=== PATIENT | female | born 1970 | race Caucasian/White ===

== ENCOUNTER 2017-02-05 18:34 | Inpatient (IN) | payer BC ==
[2017-02-05] MEDS ORDERED: Ondansetron HCl/PF 4 MG/2 ML Vial ONE (18:57)
[2017-02-05] MEDS ORDERED: Morphine Sulfate 2 MG/ML SYRINGE ONE (18:57)
[2017-02-05 19:00] LABS: #Basophils 0.1 thou/uL (0.0-0.2); #Eosinphils 0.1 thou/uL (0.0-0.7); #Lymphocytes 2.8 thou/uL (1.20-3.40); #Monocytes 0.4 thou/uL (0.11-0.59); #Neutrophils 3.5 thou/uL (1.40-6.50); %Basophils 1.8 % (0.0-1.0); %Eosinophils 1.3 % (0.0-10.0); %Lymphocytes 39.9 % (21.0-51.0); %Monocytes 6.3 % (0.0-10.0); Hematocrit 41.2 % (36.0-47.0); Mean Platelet Volume 6.7 fL (7.4-10.4); Red Blood Cell (RBC) Count 4.63 mill/uL (4.20-5.40); White Blood Cell (WBC) Count 6.9 thou/uL (4.8-10.8)
[2017-02-05 19:23] LABS: ALT (SGPT) 19 U/L (8-55); AST (SGOT) 24 U/L (5-34); Alkaline Phosphatase 72 U/L (40-150); Anion Gap 14 mmol/L (10-20); BUN (Urea Nitrogen) 23 mg/dL (7.0-18.7); Bilirubin, Total 0.2 mg/dL (0.2-1.2); Calc. Creatinine Clearance 0 mL/min (70-130); Calcium 9.4 mg/dL (7.8-10.44); Carbon Dioxide 27 mmol/L (22-29); Chloride 102 mmol/L (98-107); Estimated GFR-MDRD 72; Globulin 3.7 g/dL (2.4-3.5); Lipase 32 U/L (8-78); Protein, Total 7.8 g/dL (6.0-8.3)
--- NOTE | 2017-02-05 20:33 | ULT ---
RIGHT UPPER QUADRANT ULTRASOUND: Indication: Right upper quadrant abdominal pain for one week. Comparison: 10-13-07 FINDINGS: Overlying bowel gas limits visualization of the pancreas. Visualized aspects of the liver appear within normal limits. There have been interval development of a wall echo shadow sign within the gallbladder. Gallbladder wall thickness is slightly difficult to measure due to the prominent of stones within the gallbladde r but is estimated to measure approximately 6.7 mm, which is thickened. No pericholecystic fluid is evident. The patient was medicated with pain medication prior to the procedure limiting evaluation o f the Bright's sign. The common bile duct measured 4 mm, which is normal. The right kidney measures 9.4 x 4.9 x 5 cm. No focal renal lesion or hydronephrosis is evident. IMPRESSION: Cholelithiasis with mild gallbladder wall thickening. The patient was medicated prior to the examina tion limiting evaluation for sonographic Bright's sign. The examination is equivocal for acute calcu vel cholecystitis. HIDA exam may be helpful additional characterization. POS: MILLER
[2017-02-05] MEDS ORDERED: Meropenem 1 GM in Sodium Chloride 0.9% 100 ML IVPB SCH (21:00)
[2017-02-05] MEDS ORDERED: Ondansetron ODT 4 MG TAB SL PRN (22:47)
[2017-02-05] MEDS ORDERED: Sodium Chloride 0.9% 1,000 ML IV SCH (22:47)
[2017-02-05] MEDS ORDERED: Ondansetron HCl/PF 4 MG/2 ML Vial IVP PRN ×2 (22:47→23:08)
[2017-02-05] MEDS ORDERED: Ketorolac Tromethamine 30 MG/ML VIAL IVP PRN ×2 (22:52→23:08)
[2017-02-05] MEDS ORDERED: Mag-Al 1200 mg/1200 mg/30 ML UDCUP PO PRN (23:08)
[2017-02-05] MEDS ORDERED: Dextrose 5% in Water 1,000 ML IV PRN (23:08)
[2017-02-05] MEDS ORDERED: Promethazine HCl 25 MG/ML VIAL IM PRN (23:08)
[2017-02-05] MEDS ORDERED: Calcium Carbonate 500 MG ChewTAB PO PRN (23:08)
[2017-02-05] MEDS ORDERED: Dextrose 50% Abboject 50 ML SYRINGE SLOW IVP PRN (23:08)
[2017-02-05] MEDS ORDERED: HYDROcodone/Acetaminophen 10/325 mg Tablet PO PRN ×2 (23:08)
[2017-02-06] MEDS: Sodium Chloride 0.9% 1,000 ML IV SCH ×3 (00:04→16:41)
[2017-02-06] MEDS ORDERED: Zolpidem Tartrate 5 MG TAB PO SCH (00:15)
[2017-02-06 00:16] VITALS: BP 125/82; TEMP 98.1
[2017-02-06 04:44] VITALS: BMI 29.0
--- NOTE | 2017-02-06 07:45 | HP ---
CHIEF COMPLAINT: Right upper quadrant pain. HISTORY OF PRESENT ILLNESS: This is a 47-year-old female who presents with acute cholecystitis. He r symptoms started a week ago, got progressively worse over the weekend. Denies history of known ja undice, gallstones or pancreatitis. Ultrasound shows thickened gallbladder wall and gallstones asso ciated with nausea, but no vomiting. No chronic diarrhea. No history of inflammatory bowel disease . PAST MEDICAL HISTORY: Hypertension, chronic pain. PAST SURGICAL HISTORY: Includes back surgery x2. MEDICINES: At home; lisinopril, Ambien, Wellbutrin and hydrocodone. ALLERGIES: No known drug allergies. SOCIAL HISTORY: No smoking, alcohol or other drugs. REVIEW OF SYSTEMS: Ten system review of systems otherwise negative unless described above. PHYSICAL EXAMINATION: VITAL SIGNS: Blood pressure 125/82, pulse 71, respirations 16, temperature 98.1. HEENT: Sclerae are anicteric. Oropharynx clear. NECK: No lymphadenopathy. CHEST: Clear. HEART: Regular rate and rhythm. ABDOMEN: Soft, tender in the right upper quadrant, localized guarding, no rebound, no abdominal or inguinal hernias. EXTREMITIES: No ischemia or edema to extremities. LABORATORY AND X-RAY FINDINGS: White blood cell count 6.9, hemoglobin 13. Sodium 140, potassium 3. 4, creatinine 0.84. Normal liver function tests, normal lipase. Ultrasound shows cholelithiasis, thickened gallbladder wall, normal common bile duct. ASSESSMENT: 1. Acute cholecystitis 2. Hypertension. 3. Chronic back pain. PLAN: Laparoscopic cholecystectomy today. Risks, benefits, alternatives discussed.
[2017-02-06] MEDS ORDERED: Scopolamine 1.5 mg/72 hour Patch TD SCH (08:00)
[2017-02-06] MEDS ORDERED: Famotidine/PF 20 mg/2ml Vial SLOW IVP SCH (09:00)
[2017-02-06] MEDS ORDERED: Fentanyl 100 MCG/2 ML VIAL ONE ×4 (10:19→12:51)
[2017-02-06] MEDS ORDERED: Bupivacaine HCl 0.5%/Epinephrine 1:200,000/PF 30 ml Vial ONE (10:21)
[2017-02-06] MEDS ORDERED: Propofol 200 MG/20 ML VIAL ONE ×2 (10:49)
[2017-02-06] MEDS ORDERED: Dexamethasone 20 MG/5 ML VIAL ONE (10:49)
[2017-02-06] MEDS ORDERED: Ondansetron HCl/PF 4 MG/2 ML Vial ONE (10:49)
[2017-02-06] MEDS ORDERED: Glycopyrrolate 0.2 MG/ML 5 ML SYRINGE ONE (10:49)
[2017-02-06] MEDS ORDERED: Ketorolac Tromethamine 30 MG/ML VIAL ONE (10:49)
[2017-02-06] MEDS ORDERED: Lidocaine 1% PF 5 ML VIAL ONE (10:49)
[2017-02-06] MEDS ORDERED: Promethazine HCl 25 MG/ML VIAL IM PRN ×2 (11:36→12:33)
[2017-02-06] MEDS ORDERED: Ondansetron HCl/PF 4 MG/2 ML Vial IVP PRN ×2 (11:36→12:33)
[2017-02-06] MEDS ORDERED: Promethazine HCl 25 MG/ML VIAL SLOW IVP PRN ×2 (11:36→12:33)
[2017-02-06] MEDS ORDERED: Promethazine HCl 25 MG/ML VIAL ONE (12:23)
--- NOTE | 2017-02-07 12:14 | DIS ---
DATE OF ADMISSION: 02/05/2017 DATE OF DISCHARGE: 02/06/2017 ADMIT DIAGNOSIS: Acute cholecystitis. DISCHARGE DIAGNOSIS: Acute cholecystitis. PROCEDURE: Laparoscopic cholecystectomy by Dr. Guillen without complication. CONDITION AT DISCHARGE: Improved. STAFF: Ton Guillen M.D. HOSPITAL COURSE: See hospital chart for details of hospitalization.
--- NOTE | 2017-02-07 12:14 | OP ---
DATE OF PROCEDURE: 02/06/2017 PREOPERATIVE DIAGNOSIS: Acute cholecystitis. POSTOPERATIVE DIAGNOSIS: Acute cholecystitis. PROCEDURE PERFORMED: Laparoscopic cholecystectomy. SURGEON: Ton Guillen M.D. ANESTHESIA: General. ESTIMATED BLOOD LOSS: Minimal. COMPLICATIONS: None. SPECIMEN: Gallbladder. FINDINGS: Chronic cholecystitis. PROCEDURE IN DETAIL: The patient was taken to the Operating Room and laid supine on the Operating R oom table. After general anesthetic was obtained, the abdomen was prepped and draped in a sterile f ashion. A curved incision was made below the umbilicus. Cautery was used to dissect down to the umb ilical fascia. Umbilical fascia was incised and held up using a Alie. The abdominal cavity was e ntered using a Radha clamp. Holding stitch of Vicryl was placed on each side of the fascia. Moore trocar was placed. High-flow pneumoperitoneum was obtained. An upper midline 5-mm port and two ri t upper quadrant 5-mm ports were placed under direct camera visualization. The gallbladder was re tracted from the gallbladder fossa. The peritoneum of the gallbladder was opened anteriorly and pos teriorly. The critical view triangle was seen showing only the cystic duct and cystic artery branch ing from medial to lateral. There were no other branching structures. Two clips were placed proxim ally on the cystic duct and one laterally. It was cut using laparoscopic scissors. The cystic arter y was taken in the same way. Electrocautery was then used to dissect the gallbladder out of the gal lbladder fossa. The gallbladder was placed in an Endo catch bag and brought out through the Moore. There was no bleeding or bile in the liver bed. The cystic duct stump and cystic artery stump wer e intact without evidence of extravasation or bleeding. All port sites were infiltrated using local anesthesia. All ports were removed under camera visualization. Pneumoperitoneum was let down. Th e Vicryl was used to close the fascial defect below the umbilicus. All incisions were irrigated and closed using 4-0 Monocryl and Dermabond. The patient was en route to Recovery in stable condition. All instrument counts, needle counts and lap counts were correct.
== END 2017-02-06 19:28 | disposition home or self-care (01) | DRG 419 ==
LOC: ERS 18:34 → SURG A 22:28
PROVIDERS: ADMIT Surgery; ATTEND Surgery
PROC: 0FT44ZZ Resection of Gallbladder, Percutaneous Endoscopic Approach (ICD-10-PCS; principal; 2017-02-06)
DX: K81.0 Acute cholecystitis (principal); I10 Essential (primary) hypertension; G89.29 Other chronic pain; F32.9 Major depressive disorder, single episode, unspecified; G47.00 Insomnia, unspecified
CPT/HCPCS: 76705; 80053; 82150; 83690; 85025; 88304; 96365; 96375; J0670; J0694; J1100; J1885; J2001; J2185; J2270; J2405; J2550; J2704; J3010; J7050; S0028

== ENCOUNTER 2017-11-28 08:07 | Outpatient (CLI) | payer BC | END 2017-11-28 08:08 | disposition home or self-care (01) | LOC: BICMAMMO 08:07 | PROVIDERS: ATTEND Family Medicine | DX: Z12.31 Encounter for screening mammogram for malignant neoplasm of breast (principal); Z13.820 Encounter for screening for osteoporosis; M46.96 Unspecified inflammatory spondylopathy, lumbar region; M51.36 Other intervertebral disc degeneration, lumbar region; M85.852 Other specified disorders of bone density and structure, left thigh; Z80.3 Family history of malignant neoplasm of breast; Z85.41 Personal history of malignant neoplasm of cervix uteri | CPT/HCPCS: 77063; 77067; 77080 ==

== ENCOUNTER 2018-07-11 14:17 | Outpatient (CLI) | payer BC ==
--- NOTE | 2018-07-11 14:43 | RAD ---
THREE VIEWS LEFT ANKLE: History: Left ankle pain along the medial aspect for a few months. FINDINGS: Three views of the left ankle shows no evidence of acute fracture or dislocation. No degenerative deanna nges are seen. IMPRESSION: No evidence of acute osseous abnormality. POS: MILLER
== END 2018-07-11 14:18 | disposition home or self-care (01) ==
LOC: BICRAD 14:17
PROVIDERS: ATTEND Podiatrist
DX: M25.571 Pain in right ankle and joints of right foot (principal); M24.873 Other specific joint derangements of unspecified ankle, not elsewhere classified

== ENCOUNTER 2018-09-04 14:50 | Outpatient (CLI) | payer BC ==
--- NOTE | 2018-09-04 16:49 | MRI ---
LEFT ANKLE MRI WITHOUT IV CONTRAST: 09/04/18 HISTORY: Left ankle pain. FINDINGS: Multiplanar and multisequence MRI examination of the ankle is performed. There is abnormal thickening and linear high signal in the tibialis anterior tendon distally with some tendon sheath fluid and so me abnormal peritendinous thickening and fat stranding at the level of the accessory navicular bone w hich has extensive abnormal marrow signal probably related to a stress type fracture. The remainder of the flexor tendons as well as the peroneus tendons and extensor tendons appear intact. Inferior ca lcaneal plantar enthesophyte. Achilles tendon is borderline in size. No talar dome osteochondral les ion. Medial and lateral ankle collateral ligament complexes are intact. IMPRESSION: Extensive abnormal marrow signal within the accessory navicular ossification center, evidence for a s tress type fracture with abnormal signal involving the tibialis posterior tendon. Evidence for inters titial tearing and prominent peritendinous edema and fat stranding as well as some tendon sheath flui d. Other findings as above. POS: [facility]
== END 2018-09-04 14:51 | disposition home or self-care (01) ==
LOC: BICMRI 14:50
PROVIDERS: ATTEND Podiatrist
DX: M25.572 Pain in left ankle and joints of left foot (principal); R93.7 Abnormal findings on diagnostic imaging of other parts of musculoskeletal system

== ENCOUNTER 2022-04-18 15:54 | Outpatient (CLI) | payer BC | END 2022-04-18 15:55 | disposition home or self-care (01) | LOC: BICRAD 15:54 | PROVIDERS: ATTEND Family Medicine | DX: M19.90 Unspecified osteoarthritis, unspecified site (principal) | CPT/HCPCS: 72220 ==

== ENCOUNTER 2024-02-16 12:28 | Outpatient (CLI) | payer BC | END 2024-02-16 12:29 | disposition home or self-care (01) | LOC: SCSMRI 12:28 | PROVIDERS: ATTEND Family Medicine | DX: M54.6 Pain in thoracic spine (principal); M47.814 Spondylosis without myelopathy or radiculopathy, thoracic region; M53.84 Other specified dorsopathies, thoracic region | CPT/HCPCS: 36415; 72157; 82565 ==